=== PATIENT | female | born 1955 | race Caucasian/White ===

== ENCOUNTER 2021-03-11 20:41 | Inpatient (IN) | payer MEDICARE, OTHER ==
[~2021-03-11] VITALS: Ht 165.1 cm; Wt 77.1 kg
--- NOTE | 2021-03-11 20:45 | NUR ---
Patient was brought in via private car with a chapperone. Patient was placed on a 5150 hold for DTS/GD. Patient was walked into the ED, not on a ambulance gurney and was not restrained when presented to the emergency department. Security called to sit for patient due to high risk situation, and was instructed by switch house operator, Jailyn, that they are not required to sit for patient and instructed that nursing staff sit for the patient instead. Patient in bed, all items/belongings removed from room to keep a safe environment for patient. No sitter available at this time.
--- NOTE | 2021-03-11 20:50 | NUR ---
Pt bib private car from [facility]; patient on a 5150 for GD/DTS. A/O x3, no SOB or labored breathing. Afebrile. All pulses palpable, no edema on extermities. Denies chest pain/pressure. No c/o GI/ distress. No thoughts about harming self at this moment. Ambulatory, steady gait. Able to follow directions, cooperative. Bed in lowest position, educated about safety precautions, verbalized understanding.
[2021-03-11] MEDS ORDERED: ASPI81TA31 PO (20:57)
[2021-03-11] MEDS ORDERED: CLON1TAB12 PO (20:57)
[2021-03-11] MEDS ORDERED: AMLO-212 PO (20:57)
[2021-03-11] MEDS ORDERED: BENZ1TAB7 PO (20:57)
[2021-03-11] MEDS ORDERED: DIVA-78 PO (21:02)
[2021-03-11] MEDS ORDERED: DIVA500T4 PO (21:02)
[2021-03-11] MEDS ORDERED: HALO10TA13 PO (21:02)
[2021-03-11] MEDS ORDERED: CLON0.5T4 PO (21:02)
--- NOTE | 2021-03-11 21:04 | NUR ---
Xray at bedside.
--- NOTE | 2021-03-11 21:41 | NUR ---
gave report to Mak [facility]
--- NOTE | 2021-03-11 21:44 | NUR ---
Pt. admitted to MHU , under care of and Karin Dx: 5150 hold DTS/GD A/O x3, cooperative, stable condition, ambulatory steady gait Belongs List completed
[2021-03-11] MEDS ORDERED: FLUORESCEIN SODIUM 1 MG STRIP OP ONE (21:45)
[2021-03-11 22:00] VITALS: BP 138/90
[2021-03-11] MEDS ORDERED: MAGNESIUM HYDROXIDE 30 ML LIQUID UDC PO PRN (22:15)
--- NOTE | 2021-03-11 22:15 | NUR ---
GPS: ADMITTED 65 YEARS OLD FEMALE [facility] TO [facility] UNDER Dr LÓPEZ AND MAICO ON 5150 HOLD FOR DTS/GD. PATIENT WAS INITIALLY TAKEN TO [facility] WHERE SHE WAS MEDICALLY CLEARED AND PLACE ON HOLD. UPON ADMISSION TO MHU, PATIENT IS ALERT AND ORIENTED X3,AMBULATORY. FACE TO FACE ASSESSMENT WAS DONE. PATIENT WAS ADVISE OF HER HOLD. ADVISEMENT WAS GIVEN WELL HER BOOKLET FOR [facility] PATIENT IN FACILITIES RIGHTS. PATIENT DENIED SI. PATIENT WAS REASSURED AND REDIRECTED. HER BELONGINGS WERE INVENTORY AND PUT IN A LOCKED CLOSET. SHE WAS ALSO ADVISED OF UNIT RULES AND ROOM. PATIENT IS UNDER THE CARE OF DR LÓPEZ AND MAICO ARAIZA. BOTH DOCTOR CALLED AND MADE AWARE PATIENT IS ADMITTED IN MHU. NO C/O PAIN OR DISCOMFORT AT THIS TIME. ASSISTED WITH SHOWER. ORIENTED TO THE ROOM. WILL CONTINUE TO MONITOR.
--- NOTE | 2021-03-12 00:39 | NUR ---
MRSA SWAB DONE AND SENT TO A LAB.
[2021-03-12] MEDS: TEMAZEPAM 7.5 MG CAPSULE PO PRN (00:56)
[2021-03-12] MEDS: CLONAZEPAM 0.5 MG TABLET PO PRN (05:30)
--- NOTE | 2021-03-12 05:33 | NUR ---
patient c/o anxiety. klonopin 0.5 mg po given.
--- NOTE | 2021-03-12 05:36 | NUR ---
patient remain calm and cooperative. no behavior problem noted. self care. steady gait. denies SI at this time. continue monitoring for safety.
--- NOTE | 2021-03-12 06:08 | NUR ---
SLEPT 5 HRS THROUGH THE NIGHT.
[2021-03-12 07:24] LABS: BILIRUBIN,TOTAL 0.4 mg/dL (0.2-1.0); CREATININE 0.8 mg/dL (0.6-1.3); POTASSIUM 3.5 mmol/L (3.5-5.1); TOTAL PROTEIN, SERUM 7.6 g/dL (6.4-8.2)
[2021-03-12 07:30] VITALS: BP 123/76
[2021-03-12] MEDS: ASPIRIN 81 MG TAB.CHEW PO SCH (08:12)
[2021-03-12] MEDS: AMLODIPINE 5 MG TABLET PO SCH (08:12)
--- NOTE | 2021-03-12 09:08 | NUR ---
Firearms Report: Unpaid Intern completed and submitted a [employer] firearms report for 5150 grave disability certifications. A copy of report has been placed in patient chart.
--- NOTE | 2021-03-12 09:45 | NUR ---
PABLO Initial Discharge Plan: Patient resides at [facility] [address] [place] [address]. Patient's Ike Wong ([phone]) is involved in the patient's care. Patient would like to return to her home upon discharge. PABLO will continue to work with patient, family, and MD to ensure a safe and proper discharge plan.
--- NOTE | 2021-03-12 09:46 | NUR ---
PABOL Family Contact: SW spoke with patient's Ike Wong ([phone]) and discussed treatment and discharge plan.
--- NOTE | 2021-03-12 09:46 | NUR ---
PABLO Living Skills AdvisorDocument Photographer: PABLO contacted Zulema Prashanth Licensed Embalmer Supervisor for [facility] ([phone]) and left a voicemail for a return call. PABLO contacted Marshall RUGGIERO ([phone]) and left a voicemail for a return call.
--- NOTE | 2021-03-12 09:48 | NUR ---
Treatment Plan: Patient refused to sign treatment plan upon social worker health services assessment.
--- NOTE | 2021-03-12 12:46 | NUR ---
PABLO Computer Application DeveloperEnvironmental Remediation Specialist: PABLO contacted Zulema Prashanth Expeditionary Fighting Vehicle Crewman for [facility] ([phone]) who stated that patient is welcomed back upon discharge. She provided information and stated that pt has a registered nurse hh case manager named Miriam ([phone]) who will help arrange aftercare appointments.
--- NOTE | 2021-03-12 12:47 | NUR ---
Sales And Service Advisor: This SW contacted caser up named Miriam ([phone]) and discussed patient's discharge and treatment plan. Miriam stated that she will help this SW with aftercare appointments.
[2021-03-12] MEDS ORDERED: HALOPERIDOL 1 MG TABLET PO SCH (14:00)
[2021-03-12] MEDS: HALOPERIDOL 5 MG TABLET PO SCH ×2 (14:54→17:03)
[2021-03-12] MEDS: BENZTROPINE MESYLATE 0.5 MG TABLET PO SCH ×2 (14:55→17:04)
[2021-03-12] MEDS: DIVALPROEX 500 MG TABLET.DR PO SCH (16:19)
--- NOTE | 2021-03-12 17:29 | NUR ---
RECEIVED PATIENT CALM, COOPERATIVE, PATIENT INITIALLY ANXIOUS ABOUT HER HOLD AND EDUCATE ABOUT HER TREATMENT PLAN AND ABOUT HER STAY , SEEN AND EXAMINED BY DR. LÓPEZ VIA TELEMED, PATIENT WAS CALM COOPERATIVE , COMPLIANT AND ENGAGE IN MEANINGFUL CONVERSATION, MONITORED [id number] FOR SAFETY NO SIGN OF DISTRESS AT THIS TIME
[2021-03-12] MEDS: ACETAMINOPHEN 325 MG TABLET PO PRN (17:41)
[2021-03-12 17:47] VITALS: BP 132/69
[2021-03-12] MEDS ORDERED: DIVALPROEX ER 500 MG TAB.SR.24H PO SCH (18:00)
[2021-03-12 20:19] VITALS: BP 129/63
[2021-03-12] MEDS: QUETIAPINE FUMARATE 25 MG TABLET PO SCH (21:03)
--- NOTE | 2021-03-12 23:36 | NUR ---
RECEIVED PATIENT IN HER ROOM IN BED SLEEPING BUT EASILY AROUSABLE. SHE IS NOTED A/O X 3. CALM AND PLEASANT UPON APPROACHED. SHE IS ABLE TO VERBALIZED FEELINGS. SHE DENIED SI. AND ABLE TO VERBALLY CFS. SHE HAS BEEN COMPLIANT WITH MEDICATION REGIMENT DIET AND PLAN OF CARE. SH3E HASW BEEN EATING 100% OF OF HER HER MEALS. PATIENT IS REASSURED FOR HER SAFETY. PO FLUIDS AND SNACKS WERE OFFERED. V/S STABLE. SAFETY AND FALL PRECAUTION IN PLACE. WILL CONTINUE TO MONITOR.
[2021-03-13] MEDS: CLONAZEPAM 0.5 MG TABLET PO PRN ×2 (06:01→11:29)
--- NOTE | 2021-03-13 06:03 | NUR ---
Patient slept for approx 5.30 hrs through the night. Klonopin 0.5mg PO PRN was given for anxiety. will continue to monitor.
[2021-03-13] MEDS: MAG HYDROX/AL HYDROX/SIMETH 30 ML LIQUID UDC PO PRN (06:16)
[2021-03-13] MEDS: ASPIRIN 81 MG TAB.CHEW PO SCH (08:11)
[2021-03-13] MEDS: DIVALPROEX 500 MG TABLET.DR PO SCH ×3 (08:11→16:11)
[2021-03-13] MEDS: BENZTROPINE MESYLATE 0.5 MG TABLET PO SCH ×2 (08:12→16:10)
[2021-03-13] MEDS: AMLODIPINE 5 MG TABLET PO SCH (08:12)
[2021-03-13] MEDS: HALOPERIDOL 5 MG TABLET PO SCH ×2 (08:12→16:11)
[2021-03-13 08:22] VITALS: BP 129/75
[2021-03-13] MEDS: ACETAMINOPHEN 325 MG TABLET PO PRN (14:44)
[2021-03-13 17:10] VITALS: BP 122/66
--- NOTE | 2021-03-13 18:36 | NUR ---
Patient calm and cooperative. Patient compliant with medications and care. No signs of acute distress. patient ambulates, self care. Complained of anxiety, given Klonopin PRN as ordered. Patient hyperverbal at times. Patient denies SI/ HI. Patient denies pain/ discomfort. Will endorse to incoming shift for continuity of care.
[2021-03-13] MEDS: QUETIAPINE FUMARATE 25 MG TABLET PO SCH (20:08)
--- NOTE | 2021-03-13 21:00 | NUR ---
RECEIVED PATIENT IN THE HALLWAY SITTING IN A SABINO CHAIR;. SHE IS NOTED A/O X 3. SHE IS ABLE TO VERBALIZED FEELINGS. SHE CONTINUE WITH DELUSIONAL THINKING, "I AM HERE BECAUSE THEY SENT ME HERE BUT I AM DON'T WANT TO UPSET THEM". POOR INSIGHT AND JUDGMENT IS NOTED TO THE REASON FOR HIS ADMISSION TO MENTAL HEALTH. SAFETY AND FALL PRECAUTION IN PLACE. V/S STABLE, SAFETY AND FALL PRECAUTION IN PLACE. WILL CONTINUE TO MONIOR,
[2021-03-13 21:52] VITALS: BP 136/74
[2021-03-14] MEDS: ACETAMINOPHEN 325 MG TABLET PO PRN (01:44)
[2021-03-14] MEDS: MAG HYDROX/AL HYDROX/SIMETH 30 ML LIQUID UDC PO PRN (01:44)
[2021-03-14] MEDS: TEMAZEPAM 7.5 MG CAPSULE PO PRN (01:46)
[2021-03-14] MEDS: CLONAZEPAM 0.5 MG TABLET PO PRN (02:42)
[2021-03-14 07:30] VITALS: BP 110/68
[2021-03-14] MEDS: DIVALPROEX 500 MG TABLET.DR PO SCH ×3 (08:24→16:25)
[2021-03-14] MEDS: HALOPERIDOL 5 MG TABLET PO SCH ×2 (08:24→16:24)
[2021-03-14] MEDS: BENZTROPINE MESYLATE 0.5 MG TABLET PO SCH ×2 (08:24→16:25)
[2021-03-14] MEDS: ASPIRIN 81 MG TAB.CHEW PO SCH (08:24)
[2021-03-14] MEDS: AMLODIPINE 5 MG TABLET PO SCH (08:25)
[2021-03-14 16:00] VITALS: BP 128/75
--- NOTE | 2021-03-14 18:43 | NUR ---
Patient awake, calm and cooperative. No signs of acute distress. Vital signs stable. Patient hyperverbal at times. Able to care for self. Compliant with medications and care. Will endorse to incoming shift for continuity of care.
[2021-03-14 19:59] VITALS: BP 112/72
--- NOTE | 2021-03-14 20:00 | NUR ---
received patient in her room in bed. she is noted sleeping but easily arousable. A/O x 2. her mood is low, affect is blunted. She denied SI/HI//AH. she is able to CFS. V/S stable. she is reassured for her safety. PO fluids and snacks were offered. Savety and fall precaution in place. will continue to monitor,
[2021-03-14] MEDS: QUETIAPINE FUMARATE 25 MG TABLET PO SCH (20:55)
[2021-03-15] MEDS: CLONAZEPAM 0.5 MG TABLET PO PRN (04:11)
[2021-03-15] MEDS: ACETAMINOPHEN 325 MG TABLET PO PRN (04:12)
--- NOTE | 2021-03-15 06:51 | NUR ---
patient slept for approx. 7 hr through the night. she continue with with poor insight as to the reason for her admission to MHU. She stated, "they just wanted to get rid of me and that is why they sent me here to this detention". patient is reassured and redirected. will continue to monitor.
[2021-03-15 07:30] VITALS: BP 114/61
[2021-03-15] MEDS: DIVALPROEX 500 MG TABLET.DR PO SCH ×3 (09:05→16:44)
[2021-03-15] MEDS: AMLODIPINE 5 MG TABLET PO SCH (09:05)
[2021-03-15] MEDS: HALOPERIDOL 5 MG TABLET PO SCH ×2 (09:05→16:44)
[2021-03-15] MEDS: ASPIRIN 81 MG TAB.CHEW PO SCH (09:05)
[2021-03-15] MEDS: BENZTROPINE MESYLATE 0.5 MG TABLET PO SCH ×2 (09:06→16:44)
--- NOTE | 2021-03-15 15:11 | NUR ---
SW Individual Therapy: boom worker met with patient for brief counseling to address patient's presenting problem paranoid thought content. Patient presented labile and manic. Patient was constantly laughing for no apparent reason. Patient unable to have a proper conversation as pt presented labile.
[2021-03-15 15:23] VITALS: BP 128/69
[2021-03-15 20:01] VITALS: BP 108/72
[2021-03-15] MEDS: QUETIAPINE FUMARATE 25 MG TABLET PO SCH (20:06)
[2021-03-16] MEDS: CLONAZEPAM 0.5 MG TABLET PO PRN ×2 (04:17→13:10)
--- NOTE | 2021-03-16 06:32 | NUR ---
GPS: Pt.slept for 6 hrs.last night. Less anxious and more re-directable. Safe environment provided. Will continue to monitor.
[2021-03-16 07:30] VITALS: BP 98/56
[2021-03-16] MEDS: AMLODIPINE 5 MG TABLET PO SCH (09:00)
[2021-03-16] MEDS: HALOPERIDOL 5 MG TABLET PO SCH ×2 (09:34→16:53)
[2021-03-16] MEDS: BENZTROPINE MESYLATE 0.5 MG TABLET PO SCH ×2 (09:34→16:53)
[2021-03-16] MEDS: DIVALPROEX 500 MG TABLET.DR PO SCH ×3 (09:34→16:53)
[2021-03-16] MEDS: ASPIRIN 81 MG TAB.CHEW PO SCH (09:34)
--- NOTE | 2021-03-16 15:09 | NUR ---
SW Individual Therapy: brewery cellar worker met with patient for brief counseling to address patient's presenting problem paranoid thought content. Patient presented less paranoid and delusional. Patient expressed that she was diagnosed with bipolar disorder since age 22. She stated that she has had a michelle with her mood swings but has been able to control them. This SW actively listened and provided support.
[2021-03-16 15:16] VITALS: BP 121/69
[2021-03-16] MEDS: QUETIAPINE FUMARATE 25 MG TABLET PO SCH (20:17)
[2021-03-16 20:49] VITALS: BP 130/71
[2021-03-17] MEDS: CLONAZEPAM 0.5 MG TABLET PO PRN ×2 (01:55→15:31)
[2021-03-17 07:30] VITALS: BP 135/72
--- NOTE | 2021-03-17 07:30 | NUR ---
Received report from MARIUM Nugent. All questions, comments, and concerns were addressed. Received patient resting quietly in her assigned bed, bed is in low and locked position. Patient is alert and oriented.
[2021-03-17] MEDS: DIVALPROEX 500 MG TABLET.DR PO SCH ×3 (08:19→16:21)
[2021-03-17] MEDS: HALOPERIDOL 5 MG TABLET PO SCH ×2 (08:19→16:21)
[2021-03-17] MEDS: ASPIRIN 81 MG TAB.CHEW PO SCH (08:19)
[2021-03-17] MEDS: AMLODIPINE 5 MG TABLET PO SCH (08:19)
[2021-03-17] MEDS: BENZTROPINE MESYLATE 0.5 MG TABLET PO SCH ×2 (08:20→16:21)
--- NOTE | 2021-03-17 11:26 | NUR ---
Court Hearing: Patient's court hearing for 5250 was today and it was upheld for GD and danger to self.
--- NOTE | 2021-03-17 14:51 | NUR ---
PABLO Individual Therapy: wine cellar worker met with patient for brief counseling to address patient's presenting problem paranoid thought content. Patient presented labile and manic. Patient was constantly laughing inappropriately and stating that the mafia is after her. PABLO unable to provide proper therapy at this time due to paranoia.
[2021-03-17 16:07] VITALS: BP 141/46
[2021-03-17] MEDS: QUETIAPINE FUMARATE 25 MG TABLET PO SCH (20:03)
[2021-03-17 20:19] VITALS: BP 118/69
[2021-03-17] MEDS: MAG HYDROX/AL HYDROX/SIMETH 30 ML LIQUID UDC PO PRN (21:15)
--- NOTE | 2021-03-17 21:35 | NUR ---
GPS: Pt. c/o nausea and just vomitted moderate amounts of undigested food. Pt.is paranoid at this time and thinks she's being poisoned. Re-directed and re-assured. Jim Wheeler NP notified. Awaiting return call. Will continue to monitor.
--- NOTE | 2021-03-17 21:58 | NUR ---
GPS: Jim Wheeler GARAGE SUPERVISOR called back with orders. Pt.currently asleep at this time during rounds. No further n/v episodes noted. Breathing easy and unlabored. Will continue to monitor.
[2021-03-17] MEDS ORDERED: ONDANSETRON ODT 4 MG TAB.RAPDIS SL PRN (22:00)
--- NOTE | 2021-03-18 06:26 | NUR ---
GPS: Pt.slept for 8.45 last night. Now awake without any further episodes of n/v noted. Denies any abdominal pain/discomfort. Needs attended. Safe environment provided.
[2021-03-18 07:30] VITALS: BP 122/65
[2021-03-18] MEDS: BENZTROPINE MESYLATE 0.5 MG TABLET PO SCH ×2 (08:21→16:07)
[2021-03-18] MEDS: ASPIRIN 81 MG TAB.CHEW PO SCH (08:21)
[2021-03-18] MEDS: AMLODIPINE 5 MG TABLET PO SCH (08:21)
[2021-03-18] MEDS: DIVALPROEX 500 MG TABLET.DR PO SCH ×3 (08:21→16:08)
[2021-03-18] MEDS: HALOPERIDOL 5 MG TABLET PO SCH ×2 (08:22→16:07)
[2021-03-18 12:23] LABS: BASOPHILS # (AUTO) 0.1 K/uL (0.0-8.0); BASOPHILS % (AUTO) 0.8 % (0.0-2.0); EOSINOPHILS # (AUTO) 0.1 K/uL (0.0-0.7); EOSINOPHILS % (AUTO) 1.5 % (0.0-7.0); HEMATOCRIT 40.2 % (31.2-41.9); HEMOGLOBIN 13.4 g/dL (10.9-14.3); LYMPHOCYTES # (AUTO) 2.7 K/uL (20.0-40.0); LYMPHOCYTES % (AUTO) 30.2 % (20.5-51.5); MEAN CORPUSCULAR HEMOGLOBIN 30.2 uug (24.7-32.8); MEAN CORPUSCULAR HGB CONC 33 g/dL (32.3-35.6); MEAN CORPUSCULAR VOLUME 90.5 fL (75.5-95.3); MONOCYTES # (AUTO) 0.8 K/uL (2.0-10.0); MONOCYTES % (AUTO) 8.7 % (0.0-11.0); NEUTROPHILS # (AUTO) 5.3 K/uL (1.8-8.9); NEUTROPHILS % (AUTO) 58.8 % (38.5-71.5); PLATELET COUNT (AUTO) 296 K/uL (179-408); RED BLOOD CELL COUNT(AUTO) 4.45 MIL/uL (3.63-4.92)
[2021-03-18 12:58] LABS: BILIRUBIN,DIRECT 0.1 mg/dL (0.0-0.2); BILIRUBIN,TOTAL 0.2 mg/dL (0.2-1.0); CREATININE 0.8 mg/dL (0.6-1.3); POTASSIUM 3.7 mmol/L (3.5-5.1)
[2021-03-18] MEDS: CLONAZEPAM 0.5 MG TABLET PO PRN ×2 (13:39→21:35)
[2021-03-18] MEDS: MAG HYDROX/AL HYDROX/SIMETH 30 ML LIQUID UDC PO PRN (13:39)
[2021-03-18 16:00] VITALS: BP 135/69
[2021-03-18 20:10] VITALS: BP 107/71
[2021-03-18] MEDS: QUETIAPINE FUMARATE 25 MG TABLET PO SCH (20:24)
--- NOTE | 2021-03-19 06:37 | NUR ---
Patient slept 7.3 hours, remained in their room. Compliant with medications. Denies abd pain and n/v. All patient needs were met and attended to. q15 min visual safety checks remain intact.
[2021-03-19] MEDS: ASPIRIN 81 MG TAB.CHEW PO SCH (08:19)
[2021-03-19] MEDS: AMLODIPINE 5 MG TABLET PO SCH (08:20)
[2021-03-19] MEDS: BENZTROPINE MESYLATE 0.5 MG TABLET PO SCH ×2 (08:20→16:23)
[2021-03-19] MEDS: DIVALPROEX 500 MG TABLET.DR PO SCH ×3 (08:20→16:23)
[2021-03-19] MEDS: HALOPERIDOL 5 MG TABLET PO SCH ×2 (08:20→16:23)
[2021-03-19 08:41] VITALS: BP 123/68
--- NOTE | 2021-03-19 14:24 | NUR ---
SW Coordination of Care: This SW contacted patient's [facility] ([phone]) to make aftercare appointments for patient upon discharge. This SW spoke with Deborah executive receptionist who stated that Dilcia will contact this SW to coordinate aftercare appointments. This SW contacted patient's showcase trimmer Miriam ([phone]) requested to help with patient's aftercare appointments and to discuss discharge plan. This SW left a voicemail.
--- NOTE | 2021-03-19 14:36 | NUR ---
SW Coordination of Care: This SW contacted [facility] Louver Door Assembler Tawanna ([phone]) and stated that patient will be discharged sometime next week and she was agreeable with this.
--- NOTE | 2021-03-19 14:37 | NUR ---
SW Coordination of Care: This SW contacted Elvie ([phone]) from [facility] to coordinate transportation. This SW filed out "Patient Transportation Request" and faxed it to ([phone]).
[2021-03-19 17:06] VITALS: BP 113/65
--- NOTE | 2021-03-19 18:12 | NUR ---
Patient AOx3. No signs of acute distress. Patient compliant with medication and care. Patient able to ambulate ad alicia. Patient able to care for self. Able to make needs known. Patient redirectable and able to be contracted for safety. Safe environment provided. Frequent patient rounding done. Will endorse to incoming shift for continuity of care.
[2021-03-19] MEDS: QUETIAPINE FUMARATE 25 MG TABLET PO SCH (20:11)
[2021-03-19 20:13] VITALS: BP 121/64
[2021-03-19] MEDS: TEMAZEPAM 7.5 MG CAPSULE PO PRN (22:15)
--- NOTE | 2021-03-20 05:38 | NUR ---
GPS: Remain cooperative with care,compliant with medications. no agitation noted at this time. resting in bed comfortably. Denies abd pain and n/v. All patient needs were met and attended to. q15 min visual safety checks remain intact. continue plan of care.
--- NOTE | 2021-03-20 06:17 | NUR ---
slept 6.45 hrs through the night, after restoril 7.5 mg po given.
--- NOTE | 2021-03-20 07:30 | NUR ---
received patient AOX2, patient disoriented with her situation, needed prompting, patient redirectable, , on monitoring [id number]
[2021-03-20 07:56] VITALS: BP 105/62
[2021-03-20] MEDS: ASPIRIN 81 MG TAB.CHEW PO SCH (08:38)
[2021-03-20] MEDS: HALOPERIDOL 5 MG TABLET PO SCH ×2 (08:39→16:08)
[2021-03-20] MEDS: DIVALPROEX 500 MG TABLET.DR PO SCH ×3 (08:39→16:08)
[2021-03-20] MEDS: AMLODIPINE 5 MG TABLET PO SCH (08:39)
[2021-03-20] MEDS: BENZTROPINE MESYLATE 0.5 MG TABLET PO SCH ×2 (08:39→16:09)
[2021-03-20 16:46] VITALS: BP 122/76
--- NOTE | 2021-03-20 18:57 | NUR ---
patient calm cooperative, no sign of distress , endorsed to next shift
[2021-03-20 19:50] VITALS: BP 118/73
[2021-03-20] MEDS: CLONAZEPAM 0.5 MG TABLET PO PRN (20:45)
[2021-03-20] MEDS: QUETIAPINE FUMARATE 25 MG TABLET PO SCH (20:45)
[2021-03-21 07:30] VITALS: BP 116/63
--- NOTE | 2021-03-21 07:30 | NUR ---
Received patient in bed asleep but easily aroused. Patient is calm and cooperative at this time.Patient has been in bed sleeping withdrawn and isolative. No sign of distress at this time. Patient denies any SI or YARBROUGH. Safety measures are in place. Will continue to monitor.
[2021-03-21] MEDS: ASPIRIN 81 MG TAB.CHEW PO SCH (09:21)
[2021-03-21] MEDS: BENZTROPINE MESYLATE 0.5 MG TABLET PO SCH ×2 (09:22→17:10)
[2021-03-21] MEDS: HALOPERIDOL 5 MG TABLET PO SCH ×2 (09:23→17:10)
[2021-03-21] MEDS: AMLODIPINE 5 MG TABLET PO SCH (09:23)
[2021-03-21] MEDS: DIVALPROEX 500 MG TABLET.DR PO SCH ×3 (09:24→17:10)
[2021-03-21 15:16] VITALS: BP 117/61
--- NOTE | 2021-03-21 18:43 | NUR ---
Pt left resting in room. No sign of distress noted. Patient was compliant with medication. She has been in bed all day, only gets up to take4 medications and eat. Vital signs are within normal limits. Safety measures implemented. Will endorse to the oncoming nurse
[2021-03-21 20:11] VITALS: BP 133/78
[2021-03-21] MEDS: CLONAZEPAM 0.5 MG TABLET PO PRN (20:39)
[2021-03-21] MEDS: QUETIAPINE FUMARATE 25 MG TABLET PO SCH (20:39)
[2021-03-21] MEDS: TEMAZEPAM 7.5 MG CAPSULE PO PRN (22:01)
--- NOTE | 2021-03-22 06:49 | NUR ---
The patient slept 6.30 hours. Calm and cooperative but paranoid of certain staff and other patients. This headline writer was able to provide reassurance and contract with patient for safety and establish a patient , nurse relationship of trust. Continuing to monitor for safety. No acute distress noted.
[2021-03-22 07:30] VITALS: BP 110/60
[2021-03-22] MEDS: AMLODIPINE 5 MG TABLET PO SCH (08:57)
[2021-03-22] MEDS: HALOPERIDOL 5 MG TABLET PO SCH ×2 (08:57→17:00)
[2021-03-22] MEDS: DIVALPROEX 500 MG TABLET.DR PO SCH ×3 (08:57→17:00)
[2021-03-22] MEDS: BENZTROPINE MESYLATE 0.5 MG TABLET PO SCH ×2 (08:58→17:00)
[2021-03-22] MEDS: ASPIRIN 81 MG TAB.CHEW PO SCH (08:58)
--- NOTE | 2021-03-22 09:46 | NUR ---
PABLO Coordination of Care: Patient will follow up with [facility] located at [address] [place] [phone] ([phone]) scheduled on March 31 at 2:45PM.
[2021-03-22] MEDS: CLONAZEPAM 0.5 MG TABLET PO PRN ×2 (14:24→21:14)
[2021-03-22 15:25] VITALS: BP 124/71
[2021-03-22] MEDS: QUETIAPINE FUMARATE 25 MG TABLET PO SCH (20:03)
[2021-03-22 20:14] VITALS: BP 120/68
--- NOTE | 2021-03-23 06:18 | NUR ---
PT SLEPT6.30 H. PT IN NO ACUTE DISTRESS. PT HAD EPISODES OF CONFUSION AND PT IS REDIRECTABLE. VITAL SIGNS WITHIN NORMAL LIMIT. PRESCRIBED MEDICATION GIVEN AND PT TOLERATED IT WELL. PT GIVEN KLONOPIN 0.5MG PRN AT 2114H AND RESTORIL 7.5MG AT 2201H PER PT REQUEST. PT TOLERATED IT WELL. PT STABLE. PT AWARE THAT WE NEED HER URINE SAMPLE. SAFETY AND COMFORT PROVIDED. ALL NEEDS ARE MET. WILL ENDORSE TO INCOMING NURSE FOR CONTINUITY OF CARE.
[2021-03-23 07:30] VITALS: BP 103/60
[2021-03-23] MEDS: ASPIRIN 81 MG TAB.CHEW PO SCH (08:21)
[2021-03-23] MEDS: HALOPERIDOL 5 MG TABLET PO SCH ×2 (08:22→16:45)
[2021-03-23] MEDS: BENZTROPINE MESYLATE 0.5 MG TABLET PO SCH ×2 (08:22→16:45)
[2021-03-23] MEDS: DIVALPROEX 500 MG TABLET.DR PO SCH ×3 (08:23→16:45)
[2021-03-23] MEDS: AMLODIPINE 5 MG TABLET PO SCH (08:23)
--- NOTE | 2021-03-23 10:28 | NUR ---
PABLO Coordination of Care: Patient will follow up with (Psychiatrist) Dr. Shakeel Ly [place] [id number] [place] [address] ([phone]) (P:[phone]) scheduled on April 01 at 4PM. Patient will follow up with rn case manager hospice Funmilayo on March 29 at 10AM. Scheduled by Alfredo hr receptionist. Addendum: 03/23/21 at 1229 by PABLO GOMEZ This PABLO faxed patient's clinicals to Alfredo (F: [phone])
--- NOTE | 2021-03-23 10:29 | NUR ---
Transportation Arrangement: Patient will be provided transportation through [facility] arranged by Elvie ([phone]) between 1PM-2PM.
--- NOTE | 2021-03-23 10:30 | NUR ---
PABLO Individual Therapy: bakery worker met with patient for brief counseling to address patient's presenting problem paranoid thought content. Patient presented less labile and was cooperative. Patient expressed that she is excited to go back home and to see her .
--- NOTE | 2021-03-23 10:31 | NUR ---
SW Family Contact: This SW contacted patient's Ike ([phone]) and notified him that pt will be discharged tomorrow 03/23/21.
[2021-03-23] MEDS: CLONAZEPAM 0.5 MG TABLET PO PRN (14:41)
[2021-03-23 15:20] VITALS: BP 100/67
[2021-03-23 20:07] VITALS: BP 159/72
[2021-03-23] MEDS: QUETIAPINE FUMARATE 25 MG TABLET PO SCH (20:10)
[2021-03-24 07:30] VITALS: BP 123/45
--- NOTE | 2021-03-24 07:57 | NUR ---
SW Discharge Note: Patient will be discharged to [facility] [address] [place] [address] ([phone]). This SW spoke with patients [facility] Hospital[facility]ulting Systems Engineer Tawanna ([phone]) who stated that patient is welcomed back upon today. Patient will be provided transportation through [facility] arranged by Elvie ([phone]) between 1PM-2PM. Patients Shakeel ([phone]) is aware of pts discharge. Patient is alert and oriented x2. Upon discharge, patient appear to be calm, cooperative, and happy to be going home. Patient denies suicidal and homicidal ideation. Patient denies visual/auditory hallucinations. Patient will follow up with [facility] located at [address] [place] [address] ([phone]) scheduled on March 31 at 2:45PM. Patient will follow up with (Psychiatrist) [place] [address] ([phone]) (P:[phone]) scheduled on April 01 at 4PM. Patient will follow up with telephonic case manager Funmilayo on March 29 at 10AM. Patient presented with euthymic mood and congruent affect.
[2021-03-24 08:30] VITALS: BP 123/45
[2021-03-24] MEDS: ASPIRIN 81 MG TAB.CHEW PO SCH (08:30)
[2021-03-24] MEDS: BENZTROPINE MESYLATE 0.5 MG TABLET PO SCH (08:30)
[2021-03-24] MEDS: AMLODIPINE 5 MG TABLET PO SCH (08:30)
[2021-03-24] MEDS: HALOPERIDOL 5 MG TABLET PO SCH (08:30)
[2021-03-24] MEDS: DIVALPROEX 500 MG TABLET.DR PO SCH ×2 (08:30→12:44)
--- NOTE | 2021-03-24 13:22 | NUR ---
Patient is being discharged. Pt is wiling to go. Pt's hold is to be discontinued. Pt is being picked up to go to [facility] housing in [facility]. VS are stable.
== END 2021-03-24 13:25 | disposition home or self-care (01) | DRG 885 ==
LOC: ER 20:45 → GPS 21:49
PROVIDERS: ADMIT Psychiatry & Neurology Psychiatry; ATTEND Nurse Practitioner Acute Care
DX: F25.9 Schizoaffective disorder, unspecified (principal); I10 Essential (primary) hypertension; Z73.6 Limitation of activities due to disability; F39 Unspecified mood [affective] disorder; F32.9 Major depressive disorder, single episode, unspecified
CPT/HCPCS: 36415; 71045; 83690; 85025; 93005; A4663